=== PATIENT | female | born 1950 | race Caucasian/White ===

== ENCOUNTER → 2021-09-05 | Outpatient (CLI) | payer MEDICARE ==
[~2021-09-05] MED LIST: CETI-24 PO; CITA20TA6 PO; GABA-282 PO; HYDR-3490 PO; HYDR200T3 PO; METH2.5T48 PO
== END ==
LOC: M LABSMTC 11:29
PROVIDERS: ATTEND Anesthesiology
DX: Z01.812 Encounter for preprocedural laboratory examination (principal); Z20.822 Contact with and (suspected) exposure to COVID-19

== ENCOUNTER 2021-09-10 13:01 | Day surgery (SDC) | payer MEDICARE ==
[~2021-09-10] VITALS: Ht 160 cm; Wt 60.8 kg
[~2021-09-10 13:01] MED LIST changes: +NS 1,000 ML IV ONE
[2021-09-10] MEDS ORDERED: LIDOCAINE 2% INJ 100 MG/5 ML SYRINGE As Ordered ONE (14:48)
[2021-09-10] MEDS ORDERED: propofoL 200 MG/20 ML VIAL As Ordered ONE ×3 (14:48→15:09)
[2021-09-10] MEDS ORDERED: LIQUID POLIBAR PLUS 105% w/v 750ML BTL As Ordered ONE (15:37)
[2021-09-10 15:40] VITALS: BP 120/72
== END 2021-09-10 15:55 | disposition home or self-care (01) ==
LOC: M OPP 13:01
PROVIDERS: ATTEND Internal Medicine Gastroenterology
DX: Z53.8 Procedure and treatment not carried out for other reasons (principal); Z12.11 Encounter for screening for malignant neoplasm of colon; Z86.010 Personal history of colon polyps; K57.30 Diverticulosis of large intestine without perforation or abscess without bleeding; K56.699 Other intestinal obstruction unspecified as to partial versus complete obstruction; Z79.82 Long term (current) use of aspirin; Z79.899 Other long term (current) drug therapy; Z87.891 Personal history of nicotine dependence
CPT/HCPCS: 74280; G0105

== ENCOUNTER → 2022-09-22 | Outpatient (CLI) | payer MEDICARE ==
[~2022-09-22] MED LIST changes: -NS 1,000 ML IV ONE
== END ==
LOC: M WHC 09:50
PROVIDERS: ATTEND Nurse Practitioner Family
DX: Z12.31 Encounter for screening mammogram for malignant neoplasm of breast (principal)